=== PATIENT | female | born 1985 | race Caucasian/White ===

== ENCOUNTER 2021-04-15 11:40 | Emergency (ER) | payer MEDICAID ==
[~2021-04-15] VITALS: Ht 165.1 cm; Wt 90.9 kg
[2021-04-15] MEDS ORDERED: ACETAMINOPHEN 325 MG TABLET PO ONE (14:15)
[2021-04-15] MEDS ORDERED: IBUPROFEN 400 MG TABLET PO ONE (14:15)
[2021-04-15 15:34] VITALS: BP 106/68
== END 2021-04-15 15:40 | disposition home or self-care (01) ==
LOC: EMS 11:43
DX: S13.4XXA Sprain of ligaments of cervical spine, initial encounter (principal); S20.00XA Contusion of breast, unspecified breast, initial encounter; V43.52XA Car driver injured in collision with other type car in traffic accident, initial encounter; Y93.89 Activity, other specified; Y92.488 Other paved roadways as the place of occurrence of the external cause; Y99.8 Other external cause status
CPT/HCPCS: 71046; 99283